=== PATIENT | female | born 1970 | race Caucasian/White ===

== ENCOUNTER 2017-12-01 13:32 | Emergency (ER) | payer OTHER ==
[~2017-12-01] VITALS: Ht 165.1 cm; Wt 65.8 kg
--- NOTE | 2017-12-01 14:18 | RAD ---
Left elbow, 3 views, 12/01/2017: HISTORY: Elbow pain No fracture or dislocation is identified. No significant arthritic change is seen. There is no evidence of a significant elbow joint effusion. IMPRESSION: No significant abnormality is detected. Electronically signed by: Valdez Clark MD (12/01/2017 2:14 PM) [facility]
[2017-12-01] MEDS ORDERED: GABA-585 PO (15:50)
[2017-12-01] MEDS ORDERED: METH4TAB7 PO (15:56)
[2017-12-01] MEDS ORDERED: KETOROLAC 60 MG/2 ML VIAL. IM ONE ×2 (16:00→16:06)
[2017-12-01 16:15] VITALS: BP 110/67
--- NOTE | 2017-12-01 17:24 | PHYS DOC ---
Past History Past Medical History: Anxiety, Arthritis, Fibromyalgia, Other Past Surgical History: Hysterectomy, Other Alcohol Use: None Drug Use: None Social History Narrative: HX OF DAILY USE OF "MEDICAL HALLE" Adult General Chief Complaint Chief Complaint: UPPER EXTREMITY PAIN HPI HPI 47-year-old female presents with left elbow pain. [place] She says that she has had pain for a couple of weeks off and on. The pain is 7 out of 10. He is a burning type of pain that radiates from her elbow or arm sometimes and down her arms other times. She states that it is painful with full flexion, but does not have any limited range of motion. She denies any trauma or overuse injury. She has no other complaints. Review of Systems Review of Systems Constitutional: Denies fever or chills [] Eyes: Denies change in visual acuity, redness, or eye pain [] HENT: Denies nasal congestion or sore throat [] Respiratory: Denies cough or shortness of breath [] Cardiovascular: No additional information not addressed in HPI [] GI: Denies abdominal pain, nausea, vomiting, bloody stools or diarrhea [] : Denies dysuria or hematuria [] Musculoskeletal: Left elbow pain[] Integument: Denies rash or skin lesions [] Neurologic: Denies headache, focal weakness or sensory changes [] Endocrine: Denies polyuria or polydipsia [] All other systems were reviewed and found to be within normal limits, except as documented in this note. Current Medications Current Medications Current Medications Medications (Trade) Dose Ordered Sig/[facility] Start Time Stop Time Status Last Admin Dose Admin Ketorolac Tromethamine (Toradol) 60 mg STK-MED ONCE 12/01/17 16:06 12/01/17 16:35 DC Physical Exam Physical Exam Constitutional: Well developed, well nourished, no acute distress, non-toxic appearance. [] HENT: Normocephalic, atraumatic, bilateral external ears normal, oropharynx moist, no oral exudates, nose normal. [] Eyes: PERRLA, EOMI, conjunctiva normal, no discharge. [] Neck: Normal range of motion, no tenderness, supple, no stridor. [] Cardiovascular:Heart rate regular rhythm, no murmur [] Lungs & Thorax: Bilateral breath sounds clear to auscultation [] Abdomen: Bowel sounds normal, soft, no tenderness, no masses, no pulsatile masses. [] Skin: Warm, dry, no erythema, no rash. [] Back: No tenderness, no CVA tenderness. [] Extremities: Subjective pain with flexion past 110, no cyanosis, no clubbing, ROM intact, no edema. No erythema.[] Neurologic: Alert and oriented X 3, normal motor function, normal sensory function, no focal deficits noted. [] Psychologic: Affect normal, judgement normal, mood normal. [] Current Patient Data Vital Signs Vital Signs Date Time Temp Pulse Resp B/P (MAP) Pulse Ox O2 Delivery O2 Flow Rate FiO2 12/01/17 16:15 83 20 110/67 (81) 100 Room Air 12/01/17 13:35 97.8 EKG EKG [] Radiology/Procedures Radiology/Procedures []Left elbow, 3 views, 12/01/2017: HISTORY: Elbow pain No fracture or dislocation is identified. No significant arthritic change is seen. There is no evidence of a significant elbow joint effusion. IMPRESSION: No significant abnormality is detected. Electronically signed by: Valdez Clark MD (12/01/2017 2:14 PM) [facility] Course & Med Decision Making Course & Med Decision Making Pertinent Labs and Imaging studies reviewed. (See chart for details) Patient's x-ray is unremarkable. The type of pain that she is describing sounds like neuropathic pain. She has had injections in her cervical spine in the past. She has never had a workup for carpal tunnel. She has an odd, flat affect. I don't know if this is due to her prescription medications or something else. She is nontoxic in appearance. I do not believe there is anything seriously wrong with the patient. I offered to try Neurontin, but she says she does not tolerate it well. She asked if we could try methylprednisolone and I agreed a 5 day course of it. Patient was happy with this and stated she was ready to be discharged. [] Dragon Disclaimer Dragon Disclaimer This electronic medical record was generated, in whole or in part, using a voice recognition dictation system. Departure Departure: Impression: Primary Impression: Left elbow pain Disposition: 01 HOME, SELF-CARE Condition: STABLE Scripts Methylprednisolone (METHYLPREDNISOLONE) 4 Mg Tablet 4 MG PO DAILY for 7 Days, #7 TAB Prov: VALENTIN MADSEN DO 12/01/17 VALENTIN MADSEN DO December 01, 2017 17:24
== END 2017-12-01 16:35 | disposition home or self-care (01) ==
LOC: ER 13:32
DX: M25.522 Pain in left elbow (principal); F41.9 Anxiety disorder, unspecified; M79.7 Fibromyalgia; M19.90 Unspecified osteoarthritis, unspecified site
CPT/HCPCS: 73070; 96372; 99284; J1885

== ENCOUNTER 2018-07-11 12:50 | Emergency (ER) | payer OTHER ==
[~2018-07-11] VITALS: Ht 165.1 cm; Wt 73.1 kg
[~2018-07-11 12:50] MED LIST: GABA-585 PO; METH4TAB7 PO
[2018-07-11] MEDS ORDERED: HYDROcodone/APAP 5/325MG 1 TAB TABLET PO ONE (13:15)
[2018-07-11] MEDS ORDERED: KETOROLAC 60 MG/2 ML VIAL. IM ONE (13:15)
[2018-07-11] MEDS ORDERED: CYCLOBENZAPRINE 10 MG TABLET. PO ONE (13:15)
--- NOTE | 2018-07-11 13:17 | PHYS DOC ---
Past History Past Medical History: Anxiety, Arthritis, Fibromyalgia, Other Past Surgical History: Hysterectomy, Other Alcohol Use: None Drug Use: Marijuana Adult General Chief Complaint Chief Complaint: BACK PAIN - NO INJURY HPI HPI Patient is a 48 year old female with history of chronic back pain who presents with complaining of low back pain. Patient stated she tried to prevent of a fight between her service dog and a big bulldog and twisted her back with radiation of pain to posterior left thigh and numbness of her left eye like her previous episodes of sciatica pain. Patient had a ride to the hospital but went to a wrong part of hospital and almost lost her balance and had to sit on the stairs without having to fall. Patient brought in by EMS. Review of Systems Review of Systems Constitutional: Denies fever or chills [] Eyes: Denies change in visual acuity, redness, or eye pain [] HENT: Denies nasal congestion or sore throat [] Respiratory: Denies cough or shortness of breath [] Cardiovascular: No additional information not addressed in HPI [] GI: Denies abdominal pain, nausea, vomiting, bloody stools or diarrhea [] : Denies dysuria or hematuria [] Musculoskeletal: Reports back pain and neck pain Integument: Denies rash or skin lesions [] Neurologic: Denies headache, focal weakness, reports sensory changes [] Endocrine: Denies polyuria or polydipsia [] All other systems were reviewed and found to be within normal limits, except as documented in this note. Current Medications Current Medications Current Medications Medications (Trade) Dose Ordered Sig/[facility] Start Time Stop Time Status Last Admin Dose Admin Acetaminophen/ Hydrocodone Bitart (Lortab 5/325) 1 tab 1X ONCE 07/11/18 13:15 07/11/18 13:16 UNV Cyclobenzaprine HCl (Flexeril) 10 mg 1X ONCE 07/11/18 13:15 07/11/18 13:16 UNV Ketorolac Tromethamine (Toradol Im) 60 mg 1X ONCE 07/11/18 13:15 07/11/18 13:16 UNV Allergies Allergies Allergies Coded Allergies Type Severity Reaction Last Updated Verified Sulfa (Sulfonamide Antibiotics) Allergy Severe 07/11/18 Yes Physical Exam Physical Exam Constitutional: Well developed, well nourished, no acute distress, non-toxic appearance. [] HENT: Normocephalic, atraumatic, bilateral external ears normal, oropharynx moist, no oral exudates, nose normal. [] Eyes: PERRLA, EOMI, conjunctiva normal, no discharge. [] Neck: Normal range of motion, no tenderness, supple, no stridor. [] Cardiovascular:Heart rate regular rhythm, no murmur [] Lungs & Thorax: Bilateral breath sounds clear to auscultation [] Abdomen: Bowel sounds normal, soft, no tenderness, no masses, no pulsatile masses. [] Skin: Warm, dry, no erythema, no rash. [] Back: No midline tenderness, painful range of motion, left paraspinal muscle spasm, no CVA tenderness. [] Extremities: No tenderness, no cyanosis, no clubbing, ROM intact, no edema. [] Neurologic: Alert and oriented X 3, normal motor function, normal sensory function, no focal deficits noted. [] Psychologic: Affect normal, judgement normal, mood normal. [] Current Patient Data Vital Signs Vital Signs Date Time Temp Pulse Resp B/P (MAP) Pulse Ox O2 Delivery O2 Flow Rate FiO2 07/11/18 13:03 98.4 96 18 100 Room Air EKG EKG [] Radiology/Procedures Radiology/Procedures [][place] [address] IMAGING REPORT Signed PATIENT: JESSEE ALONSO ACCOUNT: [id number] : 1970 LOCATION: ER AGE: 48 SEX: F EXAM STATUS: PRE ER ORD. PHYSICIAN: ISAIAS PEARL MD REASON: injury PROCEDURE: HIP LEFT 2V WITH PELVIS LUMBAR SPINE 2-3V, HIP LEFT 2V WITH PELVIS History: lower back pain, fell today. Left hip and pelvic pain. Comparison: None are available AP pelvis with two-view left hip No evidence of an acute fracture. No evidence of bone destruction. Joint spaces intact. Surgical clips are identified in pelvis. Pelvic calcifications are likely due to phleboliths. Several dense nonspecific soft tissue calcification seen on the left. Three-view lumbar spine Degenerative spondylosis with marginal spurring. Vertebral body height is intact. No significant spondylolisthesis. IMPRESSION: Degenerative spondylosis. No evidence of an acute fracture. Electronically signed by: Jaime Gore MD (07/11/2018 1:48 PM) [facility] DICTATED AND SIGNED BY: JAIME GORE MD DATE: 07/11/18 0981 CC: ISAIAS PEARL MD; PCP,NO ~ Course & Med Decision Making Course & Med Decision Making Pertinent Imaging studies reviewed. (See chart for details) discharge: I've spoken with the patient and/or caregivers. I've explained the patient's condition, diagnosis and treatment plan based on information available to me at this time. I've answered the patient's and/or caregivers questions and addressed any concerns. The patient and/or caregivers have a good understanding the patient's diagnosis, condition and treatment plan as can be expected at this point. Vital signs have been stabilized. The patient's condition is stable for discharge from the emergency department. The patient will pursue further outpatient evaluation with her primary care provider or other designated consulting physician as outlined in the discharge instructions. Patient and/or caregivers are agreeable to this plan of care and follow-up instructions have been explained in detail. The patient and/or caregivers have received these instructions in written format and expressed understanding of these discharge instructions. The patient and her caregivers are aware that if any significant change in condition or worsening of symptoms should prompt him to immediately return to this of the closest emergency department. If an emergent department is not readily available I would encourage him to call 911. Venus Disclaimer Dragon Disclaimer This electronic medical record was generated, in whole or in part, using a voice recognition dictation system. Departure Departure: Impression: Primary Impression: Acute lumbosacral myofascial strain Disposition: HOME, SELF-CARE (at 1417) Condition: IMPROVED Referrals: PCP,TARSHA (PCP) Patient Instructions: Lumbosacral Strain Additional Instructions: Drink plenty of liquids Follow-up with your primary care physician in 3-5 days Return to ER if not getting better Apply ice on your back [id number] Tylenol 1000 mg every 6-8 hours as needed for pain Scripts Cyclobenzaprine Hcl (CYCLOBENZAPRINE HCL) 10 Mg Tablet 1 TAB PO TID for pain, #30 TAB Prov: ISAIAS PEARL MD 07/11/18 ISAIAS PEARL MD Jul 11, 2018 13:17
--- NOTE | 2018-07-11 13:52 | RAD ---
LUMBAR SPINE 2-3V, HIP LEFT 2V WITH PELVIS History: lower back pain, fell today. Left hip and pelvic pain. Comparison: None are available AP pelvis with two-view left hip No evidence of an acute fracture. No evidence of bone destruction. Joint spaces intact. Surgical clips are identified in pelvis. Pelvic calcifications are likely due to phleboliths. Several dense nonspecific soft tissue calcification seen on the left. Three-view lumbar spine Degenerative spondylosis with marginal spurring. Vertebral body height is intact. No significant spondylolisthesis. IMPRESSION: Degenerative spondylosis. No evidence of an acute fracture. Electronically signed by: Jaime Gore MD (07/11/2018 1:48 PM) [facility]
--- NOTE | 2018-07-11 13:52 | RAD ---
LUMBAR SPINE 2-3V, HIP LEFT 2V WITH PELVIS History: lower back pain, fell today. Left hip and pelvic pain. Comparison: None are available AP pelvis with two-view left hip No evidence of an acute fracture. No evidence of bone destruction. Joint spaces intact. Surgical clips are identified in pelvis. Pelvic calcifications are likely due to phleboliths. Several dense nonspecific soft tissue calcification seen on the left. Three-view lumbar spine Degenerative spondylosis with marginal spurring. Vertebral body height is intact. No significant spondylolisthesis. IMPRESSION: Degenerative spondylosis. No evidence of an acute fracture. Electronically signed by: Jaime Gore MD (07/11/2018 1:48 PM) [facility]
[2018-07-11] MEDS ORDERED: CYCL-331 PO (14:20)
[2018-07-11 14:26] VITALS: BP 112/56
== END 2018-07-11 14:20 | disposition home or self-care (01) ==
LOC: ER 12:50
DX: S39.012A Strain of muscle, fascia and tendon of lower back, initial encounter (principal); M54.2 Cervicalgia; M25.552 Pain in left hip; R10.2 Pelvic and perineal pain; F41.9 Anxiety disorder, unspecified; M19.90 Unspecified osteoarthritis, unspecified site; M79.7 Fibromyalgia; Z90.710 Acquired absence of both cervix and uterus; Z88.2 Allergy status to sulfonamides; X50.1XXA Overexertion from prolonged static or awkward postures, initial encounter; Y93.89 Activity, other specified; Y92.89 Other specified places as the place of occurrence of the external cause; Y99.8 Other external cause status
CPT/HCPCS: 72100; 73502; 96372; 99283; J1885

== ENCOUNTER 2018-09-26 17:07 | Emergency (ER) | payer OTHER ==
[~2018-09-26] VITALS: Ht 165.1 cm; Wt 73.1 kg
[~2018-09-26 17:07] MED LIST changes: +CYCL-331 PO
[2018-09-26] MEDS ORDERED: IV NORMAL SALINE 1,000ML 1,000 ML IV ONE (17:30)
[2018-09-26] MEDS ORDERED: ONDANSETRON PF 4 MG/2 ML VIAL. IV ONE (17:30)
--- NOTE | 2018-09-26 17:36 | PHYS DOC ---
Past History Past Medical History: Anxiety, Arthritis, Asthma, Fibromyalgia, Other (VALENTIN MADSEN DO) Past Surgical History: Hysterectomy, Other (VALENTIN MADSEN DO) Alcohol Use: None Drug Use: Marijuana (VALENTIN MADSEN DO) Adult General Chief Complaint Chief Complaint: FLU SYMPTOM HPI HPI 48-year-old female presents with cough, fever, and body aches. The patient has had a viral URI or about the last 10 days. She thought she was starting to get better until yesterday when she had increased cough, and started have some body ache. Today she's had a fever of 101 and felt very ill. She has been nauseated. She denies diarrhea. Denies sore throat. She did get her influenza shot this year. (VALENTIN MADSEN DO) Review of Systems Review of Systems Constitutional: Fever, body aches. [] Eyes: Denies change in visual acuity, redness, or eye pain [] HENT: Denies nasal congestion or sore throat [] Respiratory: Cough with shortness of breath [] Cardiovascular: No additional information not addressed in HPI [] GI: Denies abdominal pain, nausea, vomiting, bloody stools or diarrhea [] : Denies dysuria or hematuria [] Musculoskeletal: Denies back pain or joint pain [] Integument: Denies rash or skin lesions [] Neurologic: Denies headache, focal weakness or sensory changes [] Endocrine: Denies polyuria or polydipsia [] All other systems were reviewed and found to be within normal limits, except as documented in this note. (VALENTIN MADSEN DO) Current Medications Current Medications Current Medications Medications (Trade) Dose Ordered Sig/[facility] Start Time Stop Time Status Last Admin Dose Admin Ketorolac Tromethamine (Toradol 30mg Vial) 30 mg 1X ONCE 09/26/18 17:30 09/26/18 17:31 UNV Ondansetron HCl (Zofran) 4 mg 1X ONCE 09/26/18 17:30 09/26/18 17:33 DC Sodium Chloride 1,000 ml @ 1,000 mls/hr 1X ONCE 09/26/18 17:30 09/26/18 18:29 (VALENTIN MADSEN DO) Allergies Allergies Allergies Coded Allergies Type Severity Reaction Last Updated Verified Sulfa (Sulfonamide Antibiotics) Allergy Severe 07/11/18 Yes naproxen Allergy Unknown 09/26/18 Yes promethazine Allergy Unknown 09/26/18 Yes (VALENTIN MADSEN DO) Physical Exam Physical Exam Constitutional: Well developed, well nourished, no acute distress, non-toxic appearance. [] HENT: Normocephalic, atraumatic, bilateral external ears normal, oropharynx moist, no oral exudates, nose normal. [] Eyes: PERRLA, EOMI, conjunctiva normal, no discharge. [] Neck: Normal range of motion, no tenderness, supple, no stridor. [] Cardiovascular:Heart rate 114, regular rhythm, no murmur [] Lungs & Thorax: Bilateral breath sounds clear to auscultation [] Abdomen: Bowel sounds normal, soft, no tenderness, no masses, no pulsatile masses. [] Skin: Warm, dry, no erythema, no rash. [] Back: No tenderness, no CVA tenderness. [] Extremities: No tenderness, no cyanosis, no clubbing, ROM intact, no edema. [] Neurologic: Alert and oriented X 3, normal motor function, normal sensory function, no focal deficits noted. [] Psychologic: Affect normal, judgement normal, mood normal. [] (VALENTIN MADSEN DO) Physical Exam Constitutional: Well developed, well nourished, no acute distress, non-toxic appearance. [] Cardiovascular: Heart rate and rhythm Lungs & Thorax: Bilateral breath sounds clear to auscultation [] Abdomen: Soft, no tenderness, no distention/rebound tenderness/guarding Skin: Warm, dry, no erythema, no rash. [] Extremities: No tenderness, ROM intact, no edema. [] Neurologic: Alert and oriented X 3, no focal deficits noted. [] (HOLLIS ROGERS DO) Current Patient Data Vital Signs Vital Signs Date Time Temp Pulse Resp B/P (MAP) Pulse Ox O2 Delivery O2 Flow Rate FiO2 09/26/18 17:07 99.5 119 28 96 Room Air (VALENTIN MADSEN DO) EKG EKG [] (VALENTIN MADSEN DO) Radiology/Procedures Radiology/Procedures [] (VALENTIN MADSEN DO) Radiology/Procedures PROCEDURE: CHEST PA & LATERAL Chest radiograph 09/26/2018 5:37 PM INDICATION: Cough with fever and shortness of breath COMPARISON: None available TECHNIQUE: Frontal and lateral views of the chest are provided. FINDINGS: The cardiomediastinal silhouette is within normal limits. There are no pleural effusions. There is no pulmonary vascular congestion. There is no pneumothorax. The lungs are clear. No significant osseous abnormality is identified. IMPRESSION: No acute cardiopulmonary process. Electronically signed by: Lucia Gr MD (09/26/2018 6:44 PM) [facility] DICTATED AND SIGNED BY: LUCIA GR MD DATE: 09/26/181843 (HOLLIS ROGERS DO) Course & Med Decision Making Course & Med Decision Making Pertinent Labs and Imaging studies reviewed. (See chart for details) The patient's workup is pending. I am signing the patient out to Dr. Rogers at 1800. [] (VALENTIN MADSEN DO) Course & Med Decision Making Sign out received from Dr. Madsen for patient with flu-like illness with some nausea. Patient pending laboratory and radiologic studies. Patient seen and evaluated by myself. Symptomatic steroid provided. No respiratory distress or significant wheezing noted. Abdomen non-peritoneal. CXR without acute process. Rapid influenza negative. Patient stable for discharge with outpatient follow-up with PCP. Discussed findings and plan with patient, who acknowledges understanding and agreement. (HOLLIS ROGERS DO) Dragon Disclaimer Dragon Disclaimer This electronic medical record was generated, in whole or in part, using a voice recognition dictation system. (VALENTIN MADSEN DO) Departure Departure: Impression: Primary Impression: Bronchitis Additional Impression: Nausea Disposition: 01 HOME, SELF-CARE Condition: STABLE Referrals: PCP,UNKNOWN (PCP) Patient Instructions: Acute Bronchitis, [id number], Nausea and Vomiting, Easy -to-Read Scripts Benzonatate (TESSALON PERLE) 100 Mg Capsule 1 CAP PO TID PRN for COUGH, #21 CAP Prov: HOLLIS ROGERS DO 09/26/18 Albuterol Sulfate (PROAIR HFA INHALER) 8.5 Gm Hfa.aer.ad 1 PUFF INH PRN Q6HRS for Bronchitis, #1 INHALER 0 Refills Prov: HOLLIS ROGERS DO 09/26/18 Ondansetron (ONDANSETRON ODT) 4 Mg Tab.rapdis 1 TAB PO PRN Q6-8HRS for NAUSEA, #16 TAB Prov: HOLLIS ROGERS DO 09/26/18 Problem Qualifiers VALENTIN MADSEN DO Sep 26, 2018 17:36 HOLLIS ROGERS DO Sep 26, 2018 18:34
[2018-09-26 17:50] LABS: BASO % 1 % (0-3); EOS % 0 % (0-3); HEMATOCRIT 39.6 % (36.0-47.0); HEMOGLOBIN 13.4 g/dL (12.0-15.5); LYMPH # 0.6 x10^3/uL (1.0-4.8); LYMPH % 12 % (24-48); MEAN CORPUSCULAR HEMOGLOBIN 29 pg (25-35); MEAN CORPUSCULAR HGB CONC 34 g/dL (31-37); MEAN CORPUSCULAR VOLUME 86 fL (79-100); MONO # 0.6 x10^3/uL (0.0-1.1); MONO % 12 % (0-9); NEUT # 3.8 x10^3uL (1.8-7.7); NEUT % 75 % (31-73); PLATELET COUNT 295 x10^3/uL (140-400); RED BLOOD COUNT 4.63 x10^6/uL (3.50-5.40); RED CELL DISTRIBUTION WIDTH 12.6 % (11.5-14.5)
[2018-09-26 18:00] LABS: ALBUMIN 3.7 g/dL (3.4-5.0); ALBUMIN/GLOBULIN RATIO 1.2 (1.0-1.7); CALCIUM 8.7 mg/dL (8.5-10.1); GFR 58.7; POTASSIUM 3.6 mmol/L (3.5-5.1); TOTAL BILIRUBIN 0.2 mg/dL (0.2-1.0); TOTAL PROTEIN 6.8 g/dL (6.4-8.2)
[2018-09-26] MEDS ORDERED: KETOROLAC 30 MG/ML VIAL. IV ONE (18:00)
[2018-09-26] MEDS ORDERED: BENZONATATE 100 MG CAPSULE. PO ONE (18:00)
[2018-09-26 18:05] LABS: INFLUENZA A PATIENT NEGATIVE (NEGATIVE); INFLUENZA B PATIENT NEGATIVE (NEGATIVE)
[2018-09-26] MEDS ORDERED: ALBU2.5V8 INH (18:34)
[2018-09-26] MEDS ORDERED: ONDA4TAB12 PO (18:34)
[2018-09-26] MEDS ORDERED: BENZ100C PO (18:34)
--- NOTE | 2018-09-26 18:47 | RAD ---
Chest radiograph 09/26/2018 5:37 PM INDICATION: Cough with fever and shortness of breath COMPARISON: None available TECHNIQUE: Frontal and lateral views of the chest are provided. FINDINGS: The cardiomediastinal silhouette is within normal limits. There are no pleural effusions. There is no pulmonary vascular congestion. There is no pneumothorax. The lungs are clear. No significant osseous abnormality is identified. IMPRESSION: No acute cardiopulmonary process. Electronically signed by: Maira Villa MD (09/26/2018 6:44 PM) [facility]
[2018-09-26 18:55] VITALS: BP 113/68
[2018-09-26] MEDS ORDERED: DEXAMETHASONE 4 MG TABLET PO ONE (19:15)
[2018-12-13] MEDS ORDERED: ATEN25TA42 PO (09:40)
[2018-12-13] MEDS ORDERED: DULO60CA6 PO (09:40)
[2018-12-13] MEDS ORDERED: CARI350T PO (09:40)
[2018-12-13] MEDS ORDERED: ESTR0.62 PO (09:40)
[2018-12-13] MEDS ORDERED: METH-37 PO (09:40)
[2018-12-13] MEDS ORDERED: TRAZ-86 PO (09:40)
== END 2018-09-26 18:55 | disposition home or self-care (01) ==
LOC: ER 17:07
DX: J45.909 Unspecified asthma, uncomplicated (principal); F41.9 Anxiety disorder, unspecified; M19.90 Unspecified osteoarthritis, unspecified site; M79.7 Fibromyalgia; Z88.2 Allergy status to sulfonamides; Z88.6 Allergy status to analgesic agent; Z88.8 Allergy status to other drugs, medicaments and biological substances
CPT/HCPCS: 36415; 71046; 80053; 85025; 87040; 87804; 96374; 96375; 99284; J1885; J2405; J8540; J7030

== ENCOUNTER → 2018-12-14 | Day surgery (SDC) | payer OTHER ==
[~2018-12-14] MED LIST changes: +ALBU2.5V8 INH; +ALBUTEROL SULFATE 2.5 MG/3 ML NEBU. NEB PRN; +ATEN25TA42 PO; +ATROPINE 0.5 MG/5 ML DISP.SYRIN. IV PRN; +BENZ100C PO; +CARI350T PO; +DULO60CA6 PO; +ESTR0.62 PO; +IV RINGERS SOLUTION,LACTATED 1,000 ML IV SCH; +LIDOCAINE 2% PF Vial for OR 5 ML VIAL. ONE; +METH-37 PO; +NALOXONE 0.4 MG/ML VIAL. IV PRN; +ONDA4TAB12 PO; +ONDANSETRON PF 4 MG/2 ML VIAL. IV PRN; +PROPOFOL 20 ML IV ONE; +TRAZ-86 PO; +diphenhydrAMINE 50 MG/ML VIAL IV PRN
[2018-12-14 11:20] VITALS: BP 106/63
== END | disposition home or self-care (01) ==
LOC: SURG 09:45
PROVIDERS: ATTEND Internal Medicine Gastroenterology
DX: K31.89 Other diseases of stomach and duodenum (principal); M79.7 Fibromyalgia; M19.90 Unspecified osteoarthritis, unspecified site; Z90.710 Acquired absence of both cervix and uterus; Z88.2 Allergy status to sulfonamides; Z98.890 Other specified postprocedural states; Z79.899 Other long term (current) drug therapy; Z91.040 Latex allergy status; Z88.8 Allergy status to other drugs, medicaments and biological substances; Z88.1 Allergy status to other antibiotic agents
CPT/HCPCS: 43239; J2704; J7120; 45380; J2001

== ENCOUNTER 2019-01-02 08:56 | Emergency (ER) | payer OTHER ==
[~2019-01-02] VITALS: Ht 317.5 cm; Wt 73.1 kg
[~2019-01-02 08:56] MED LIST changes: -ALBUTEROL SULFATE 2.5 MG/3 ML NEBU. NEB PRN; -ATROPINE 0.5 MG/5 ML DISP.SYRIN. IV PRN; -IV RINGERS SOLUTION,LACTATED 1,000 ML IV SCH; -LIDOCAINE 2% PF Vial for OR 5 ML VIAL. ONE; -NALOXONE 0.4 MG/ML VIAL. IV PRN; -ONDANSETRON PF 4 MG/2 ML VIAL. IV PRN; -PROPOFOL 20 ML IV ONE; -diphenhydrAMINE 50 MG/ML VIAL IV PRN
[2019-01-02] MEDS ORDERED: IV NORMAL SALINE 1,000ML 1,000 ML IV ONE (09:15)
[2019-01-02 09:23] LABS: BASO # 0.1 x10^3/uL (0.0-0.2); BASO % 1 % (0-3); EOS % 1 % (0-3); HEMATOCRIT 40.4 % (36.0-47.0); HEMOGLOBIN 13.8 g/dL (12.0-15.5); LYMPH # 2.6 x10^3/uL (1.0-4.8); LYMPH % 37 % (24-48); MEAN CORPUSCULAR HEMOGLOBIN 29 pg (25-35); MEAN CORPUSCULAR HGB CONC 34 g/dL (31-37); MEAN CORPUSCULAR VOLUME 85 fL (79-100); MONO # 0.4 x10^3/uL (0.0-1.1); MONO % 5 % (0-9); NEUT # 3.9 x10^3uL (1.8-7.7); NEUT % 56 % (31-73); PLATELET COUNT 335 x10^3/uL (140-400); RED BLOOD COUNT 4.74 x10^6/uL (3.50-5.40); RED CELL DISTRIBUTION WIDTH 12.5 % (11.5-14.5)
--- NOTE | 2019-01-02 09:41 | PHYS DOC ---
Past History Past Medical History: Anxiety, Arthritis, Asthma, Fibromyalgia, Other Past Surgical History: Hysterectomy, Other Alcohol Use: None Drug Use: Marijuana Adult General Chief Complaint Chief Complaint: DIZZY/LIGHT HEADED HPI HPI 48-year-old female presents with fatigue and shortness of breath. The patient tells me that she has been very active this week wants been very hot outside. She is done several days of outdoor activities. Yesterday she was working outside again and began to feel a bit short of breath and had fatigue. She felt really run down and tired. She did calm back inside to rest. She felt a bit better after that. Today, she took her dog for a walk and agreed out for a while was feeling short of breath again and very fatigued. She came back to her apartment still felt like to was breathing hard and had no energy. On arrival to the ED she feels that she is getting tired and very quickly with little exertion. She denies chest pain or diaphoresis. She does not have a cardiac history. She has had heat exhaustion in the past when she was in another state. She denies fever or chills. Review of Systems Review of Systems Constitutional: Fatigue. Denies fever or chills [] Eyes: Denies change in visual acuity, redness, or eye pain [] HENT: Denies nasal congestion or sore throat [] Respiratory: shortness of breath [] Cardiovascular: No additional information not addressed in HPI [] GI: Denies abdominal pain, nausea, vomiting, bloody stools or diarrhea [] : Denies dysuria or hematuria [] Musculoskeletal: Denies back pain or joint pain [] Integument: Denies rash or skin lesions [] Neurologic: Denies headache, focal weakness or sensory changes [] Endocrine: Denies polyuria or polydipsia [] All other systems were reviewed and found to be within normal limits, except as documented in this note. Current Medications Current Medications Current Medications Medications (Trade) Dose Ordered Sig/Migel Start Time Stop Time Status Last Admin Dose Admin Ondansetron HCl (Zofran) 4 mg 1X ONCE 01/02/19 09:45 01/02/19 09:46 Sodium Chloride 1,000 ml @ 1,000 mls/hr 1X ONCE 01/02/19 09:15 01/02/19 10:14 Allergies Allergies Allergies Coded Allergies Type Severity Reaction Last Updated Verified Sulfa (Sulfonamide Antibiotics) Allergy Severe 07/11/18 Yes doxycycline Allergy Unknown 12/13/18 Yes latex Allergy Unknown 12/14/18 Yes naproxen Allergy Unknown 09/26/18 Yes Physical Exam Physical Exam Constitutional: Well developed, well nourished, no acute distress, non-toxic appearance. [] HENT: Normocephalic, atraumatic, bilateral external ears normal, oropharynx moist, no oral exudates, nose normal. [] Eyes: PERRLA, EOMI, conjunctiva normal, no discharge. [] Neck: Normal range of motion, no tenderness, supple, no stridor. [] Cardiovascular:Heart rate regular rhythm, no murmur [] Lungs & Thorax: Bilateral breath sounds clear to auscultation [] Abdomen: Bowel sounds normal, soft, no tenderness, no masses, no pulsatile masses. [] Skin: Warm, dry, no erythema, no rash. [] Back: No tenderness, no CVA tenderness. [] Extremities: No tenderness, no cyanosis, no clubbing, ROM intact, no edema. [] Neurologic: Alert and oriented X 3, normal motor function, normal sensory function, no focal deficits noted. [] Psychologic: Affect normal, judgement normal, mood talkative. [] Current Patient Data Lab Results Laboratory Tests Test 01/02/19 09:12 White Blood Count 7.0 x10^3/uL (4.0-11.0) Red Blood Count 4.74 x10^6/uL (3.50-5.40) Hemoglobin 13.8 g/dL (12.0-15.5) Hematocrit 40.4 % (36.0-47.0) Mean Corpuscular Volume 85 fL (79-100) Mean Corpuscular Hemoglobin 29 pg (25-35) Mean Corpuscular Hemoglobin Concent 34 g/dL (31-37) Red Cell Distribution Width 12.5 % (11.5-14.5) Platelet Count 335 x10^3/uL (140-400) Neutrophils (%) (Auto) 56 % (31-73) Lymphocytes (%) (Auto) 37 % (24-48) Monocytes (%) (Auto) 5 % (0-9) Eosinophils (%) (Auto) 1 % (0-3) Basophils (%) (Auto) 1 % (0-3) Neutrophils # (Auto) 3.9 x10^3uL (1.8-7.7) Lymphocytes # (Auto) 2.6 x10^3/uL (1.0-4.8) Monocytes # (Auto) 0.4 x10^3/uL (0.0-1.1) Eosinophils # (Auto) 0.0 x10^3/uL (0.0-0.7) Basophils # (Auto) 0.1 x10^3/uL (0.0-0.2) EKG EKG [] Radiology/Procedures Radiology/Procedures [] Course & Med Decision Making Course & Med Decision Making Pertinent Labs and Imaging studies reviewed. (See chart for details) Patient's labs are unremarkable. Her chest x-ray is unremarkable. I'm giving the patient 1 L normal saline. I believe she is just tired from the heat. She's been exerting herself in an adverse environment. I believe she just needs to stay hydrated and get some rest. She is stable for discharge at this time. [] Dragon Disclaimer Dragon Disclaimer This electronic medical record was generated, in whole or in part, using a voice recognition dictation system. Departure Departure: Impression: Primary Impression: Fatigue due to excessive exertion Disposition: 01 HOME, SELF-CARE Condition: STABLE Referrals: ARDEN PERES MD (PCP) Patient Instructions: Fatigue, Heat Illness-SportsMed Problem Qualifiers Primary Impression: Fatigue due to excessive exertion Encounter type: initial encounter Qualified Codes: T73.3XXA - Exhaustion due to excessive exertion, initial encounter VALENTIN MADSEN DO Jan 02, 2019 09:41
[2019-01-02] MEDS ORDERED: ONDANSETRON PF 4 MG/2 ML VIAL. IV ONE (09:45)
--- NOTE | 2019-01-02 09:53 | RAD ---
EXAM: CHEST 2 VIEWS. HISTORY: Dizziness. COMPARISON: 09/26/2018. FINDINGS: Frontal and lateral views of the chest are obtained. There are no confluent infiltrates. There is no pneumothorax or pleural effusion. The heart is not enlarged. Changes of cervical fusion are noted. IMPRESSION: 1. No confluent infiltrates. Electronically signed by: Kari Vuong MD (01/02/2019 9:51 AM) [facility]
[2019-01-02 10:02] LABS: ALBUMIN 3.7 g/dL (3.4-5.0); ALBUMIN/GLOBULIN RATIO 1.2 (1.0-1.7); CALCIUM 8.8 mg/dL (8.5-10.1); CREATININE 0.8 mg/dL (0.6-1.0); GFR 75.9; POTASSIUM 3.4 mmol/L (3.5-5.1); TOTAL BILIRUBIN 0.4 mg/dL (0.2-1.0); TOTAL PROTEIN 6.8 g/dL (6.4-8.2)
[2019-01-02 10:18] LABS: BACTERIA,URINE 0 /HPF (0-FEW); BILIRUBIN,URINE NEG (NEG); CLARITY,URINE CLEAR; COLOR,URINE YELLOW; GLUCOSE,URINE NEG (NEG); NITRITE,URINE NEG (NEG); RBC,URINE RARE /HPF (0-2); SQUAMOUS EPITHELIAL CELL,UR OCC /LPF; UROBILINOGEN,URINE 0.2 mg/dL (0.2 mg/dL); WBC,URINE 0 /HPF (0-4)
[2019-01-02 11:00] VITALS: BP 99/65
== END 2019-01-02 11:00 | disposition home or self-care (01) ==
LOC: ER 08:56
DX: T73.3XXA Exhaustion due to excessive exertion, initial encounter (principal); R42 Dizziness and giddiness; F41.9 Anxiety disorder, unspecified; M19.90 Unspecified osteoarthritis, unspecified site; J45.909 Unspecified asthma, uncomplicated; M79.7 Fibromyalgia; Z88.2 Allergy status to sulfonamides; Z88.1 Allergy status to other antibiotic agents; Z91.040 Latex allergy status; Z88.8 Allergy status to other drugs, medicaments and biological substances; X58.XXXA Exposure to other specified factors, initial encounter
CPT/HCPCS: 36415; 71046; 80053; 81001; 84484; 85025; 96361; 96374; 99285; J2405; J7030

== ENCOUNTER 2019-07-22 17:08 | Emergency (ER) | payer MEDICAID, OTHER ==
[~2019-07-22] VITALS: Ht 165.1 cm; Wt 73.1 kg
[~2019-07-22 17:08] MED LIST changes: +TRAZ-125 PO; -TRAZ-86 PO
[2019-07-22 17:48] VITALS: BP 108/61
[2019-07-22] MEDS ORDERED: BENZ100C PO (18:03)
--- NOTE | 2019-07-22 18:03 | PHYS DOC ---
Past History Past Medical History: Anxiety, Arthritis, Asthma, Fibromyalgia, Other Past Surgical History: Hysterectomy, Other Alcohol Use: None Drug Use: Marijuana Adult General Chief Complaint Chief Complaint: COUGH HPI HPI 49-year-old female presents with 3 day history of cough and night sweats. Her cough is nonproductive, but she feels like there is something in her throat. She denies any chance of foreign body. It just feels swollen. The cough seems to be increasing. She has not had a measured fever but is still worried about pneumonia or influenza. 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 She has been using her albuterol lately. No known sick contacts. She has no other complaints at this time. Review of Systems Review of Systems Constitutional: chills [] Eyes: Denies change in visual acuity, redness, or eye pain [] HENT: Nasal congestion[] Respiratory: Cough without shortness of breath [] Cardiovascular: No additional information not addressed in HPI [] GI: Denies abdominal pain, nausea, vomiting, bloody stools or diarrhea [] : Denies dysuria or hematuria [] Musculoskeletal: Denies back pain or joint pain [] Integument: Denies rash or skin lesions [] Neurologic: Denies headache, focal weakness or sensory changes [] Endocrine: Denies polyuria or polydipsia [] All other systems were reviewed and found to be within normal limits, except as documented in this note. Allergies Allergies Allergies Coded Allergies Type Severity Reaction Last Updated Verified Sulfa (Sulfonamide Antibiotics) Allergy Severe 07/11/18 Yes doxycycline Allergy Unknown 12/13/18 Yes latex Allergy Unknown 12/14/18 Yes naproxen Allergy Unknown 09/26/18 Yes Physical Exam Physical Exam Constitutional: Well developed, well nourished, no acute distress, non-toxic appearance. [] HENT: Normocephalic, atraumatic, bilateral external ears normal, oropharynx mildly erythematous without tonsillar exudates, nose and just. [] Eyes: PERRLA, EOMI, conjunctiva normal, no discharge. [] Neck: Normal range of motion, no tenderness, supple, no stridor. [] Cardiovascular:Heart rate regular rhythm, no murmur [] Lungs & Thorax: Bilateral breath sounds clear to auscultation [] Abdomen: Bowel sounds normal, soft, no tenderness, no masses, no pulsatile masses. [] Skin: Warm, dry, no erythema, no rash. [] Back: No tenderness, no CVA tenderness. [] Extremities: No tenderness, no cyanosis, no clubbing, ROM intact, no edema. [] Neurologic: Alert and oriented X 3, normal motor function, normal sensory function, no focal deficits noted. [] Psychologic: Affect normal, judgement normal, mood normal. [] EKG EKG [] Radiology/Procedures Radiology/Procedures [] Course & Med Decision Making Course & Med Decision Making Pertinent Labs and Imaging studies reviewed. (See chart for details) The patient's influenza negative. Her chest x-rays negative for pneumonia. She does has viral URI with cough. I will discharge her with Tessalon Perles prescription. He also give her 100 emergency room. She is stable for discharge at this time. [] Dragon Disclaimer Dragon Disclaimer This electronic medical record was generated, in whole or in part, using a voice recognition dictation system. Departure Departure: Impression: Primary Impression: Viral URI with cough Disposition: HOME, SELF-CARE Condition: STABLE Referrals: ARDEN PERES MD (PCP) Patient Instructions: Upper Respiratory Infection, Adult, [facility] Scripts Benzonatate (TESSALON PERLE) 100 Mg Capsule 1 CAP PO TID PRN for COUGH, #30 CAP Prov: VALENTIN MADSEN DO 07/22/19 VALENTIN MADSEN DO Jul 22, 2019 18:03
[2019-07-22 18:41] LABS: INFLUENZA A PATIENT NEGATIVE (NEGATIVE); INFLUENZA B PATIENT NEGATIVE (NEGATIVE)
[2019-07-22] MEDS ORDERED: BENZONATATE 100 MG CAPSULE. PO ONE (18:45)
--- NOTE | 2019-07-22 19:13 | RAD ---
INDICATION: Cough and congestion COMPARISON: January 02, 2019 FINDINGS: 2 view of chest obtained. No focal airspace consolidation. Cardiomediastinal contour unremarkable. No acute osseous abnormality. Postoperative changes with posterior fusion changes to the lower cervical region IMPRESSION: * No focal airspace consolidation or edema. Electronically signed by: Rickey Fay MD (07/22/2019 7:10 PM) [facility] [place]
== END 2019-07-22 19:07 | disposition home or self-care (01) ==
LOC: ER 17:08
DX: J06.9 Acute upper respiratory infection, unspecified (principal); B97.89 Other viral agents as the cause of diseases classified elsewhere; M19.90 Unspecified osteoarthritis, unspecified site; J45.909 Unspecified asthma, uncomplicated; M79.7 Fibromyalgia; Z88.2 Allergy status to sulfonamides; Z88.1 Allergy status to other antibiotic agents; Z88.8 Allergy status to other drugs, medicaments and biological substances; Z91.040 Latex allergy status
CPT/HCPCS: 71046; 87804; 99285

== ENCOUNTER 2020-01-12 18:43 | Emergency (ER) | payer MEDICAID ==
[~2020-01-12] VITALS: Ht 167.6 cm; Wt 60.0 kg
[2020-01-12 18:48] VITALS: BP 121/70
[2020-01-12] MEDS ORDERED: ORPHENADRINE CITRATE 60 MG/2 ML VIAL. IM ONE (19:00)
== END 2020-01-12 18:50 | disposition left against medical advice (07) ==
LOC: ER 18:43
DX: M25.551 Pain in right hip (principal); Z53.21 Procedure and treatment not carried out due to patient leaving prior to being seen by health care provider

== ENCOUNTER 2020-04-14 12:00 | Emergency (ER) | payer MEDICAID ==
[~2020-04-14] VITALS: Ht 165.1 cm; Wt 68.0 kg
[2020-04-14 12:15] VITALS: BP 101/68
[2020-04-14] MEDS ORDERED: METH8TAB3 PO (12:43)
--- NOTE | 2020-04-14 12:43 | PHYS DOC ---
Past History Past Medical History: Fibromyalgia, Other Additional Past Medical Histor: MRSA, syncope, back pain Past Surgical History: Hysterectomy, Lumbar Laminectomy, Oophorectomy, Other Additional Past Surgical Histo: Hernia repair, foot surgery, e3ar surgery, breast biopsy Additional Smoking Information: 1/2 pack daily Alcohol Use: Rarely Drug Use: Marijuana General Adult EDM: Chief Complaint: SKIN PROBLEM HPI: HPI: 49-year-old female presents with rash. Patient has had a spreading rash with small red dots that are intensely pruritic on her bilateral lower extremities. It started on the front of her legs but now encompasses her entire leg from her foot all the way up to her thigh. She is also starting to get dots on her forearms and her lower back. She has multiple allergies, but is unsure what is causing this reaction. She cannot think of anything that is been different or new. She denies shortness of breath or oral swelling. She has no other complaints at this time. Review of Systems: Review of Systems: Constitutional: Denies fever or chills Eyes: Denies change in visual acuity HENT: Denies nasal congestion or sore throat Respiratory: Denies cough or shortness of breath Cardiovascular: Denies chest pain or edema GI: Denies abdominal pain, nausea, vomiting, bloody stools or diarrhea : Denies dysuria Musculoskeletal: Denies back pain or joint pain Integument: Rash Neurologic: Denies headache, focal weakness or sensory changes Endocrine: Denies polyuria or polydipsia Lymphatic: Denies swollen glands Psychiatric: Denies depression or anxiety Heart Score: Risk Factors: Risk Factors: DM, Current or recent (<one month) smoker, HTN, HLP, family history of CAD, obesity. Risk Scores: Score 0 - 3: 2.5% MACE over next 6 weeks - Discharge Home Score 4 - 6: 20.3% MACE over next 6 weeks - Admit for Clinical Observation Score 7 - 10: 72.7% MACE over next 6 weeks - Early Invasive Strategies Allergies: Allergies: Allergies Coded Allergies Type Severity Reaction Last Updated Verified Sulfa (Sulfonamide Antibiotics) Allergy Severe 04/14/20 Yes doxycycline Allergy Unknown 04/14/20 Yes ketorolac Allergy Unknown 04/14/20 Yes latex Allergy Unknown 04/14/20 Yes naproxen Allergy Unknown 04/14/20 Yes oxycodone Allergy Unknown 10/10/20 Yes Physical Exam: PE: Constitutional: Well developed, well nourished, no acute distress, non-toxic appearance. [] HENT: Normocephalic, atraumatic, bilateral external ears normal, oropharynx moist, no oral exudates, nose normal. [] Eyes: PERRLA, EOMI, conjunctiva normal, no discharge. [] Neck: Normal range of motion, no tenderness, supple, no stridor. [] Cardiovascular:Heart rate regular rhythm, no murmur [] Lungs & Thorax: Bilateral breath sounds clear to auscultation [] Abdomen: Bowel sounds normal, soft, no tenderness, no masses, no pulsatile masses. [] Skin: Many scattered, erythematous papules on the bilateral lower extremities with fewer on the forearms. [] Back: No tenderness, no CVA tenderness. [] Extremities: No tenderness, no cyanosis, no clubbing, ROM intact, no edema. [] Neurologic: Alert and oriented X 3, normal motor function, normal sensory function, no focal deficits noted. [] Psychologic: Affect normal, judgement normal, mood normal. [] Current Patient Data: Vital Signs: Vital Signs Date Time Temp Pulse Resp B/P (MAP) Pulse Ox O2 Delivery O2 Flow Rate FiO2 04/14/20 12:15 98.8 88 16 101/68 (79) 97 Room Air EKG: EKG: [] Radiology/Procedures: Radiology/Procedures: [] Course & Med Decision Making: Course & Med Decision Making Pertinent Labs and Imaging studies reviewed. (See chart for details) The patient appears to be having an allergic reaction to something. Not sure what it is. I will treat her with steroids. She has requested methylprednisolone instead of prednisone. She is stable for discharge at this time. [] Dragon Disclaimer: Dragon Disclaimer: This electronic medical record was generated, in whole or in part, using a voice recognition dictation system. Departure Departure: Impression: Primary Impression: Allergic reaction Qualified Codes: T78.40XA - Allergy, unspecified, initial encounter Disposition: 01 DC HOME SELF CARE/HOMELESS Condition: STABLE Referrals: ARDEN PERES MD (PCP) Patient Instructions: Drug Allergy, [id number] Scripts Methylprednisolone (METHYLPREDNISOLONE) 8 Mg Tablet 1 TAB PO DAILY for taper for 8 Days, #20 TAB 0 Refills Take 4 tabs daily for 2 days, then 3 tabs daily for 2 days, then 2 tabs daily for 2 days, then 1 tab daily for 2 days, then stop Prov: VALENTIN MADSEN DO 04/14/20 VALENTIN MADSEN DO Apr 14, 2020 12:43
== END 2020-04-14 12:50 | disposition home or self-care (01) ==
LOC: ER 12:00
DX: T78.40XA Allergy, unspecified, initial encounter (principal); M79.7 Fibromyalgia; Z86.14 Personal history of Methicillin resistant Staphylococcus aureus infection; F17.200 Nicotine dependence, unspecified, uncomplicated; Z88.2 Allergy status to sulfonamides; Z88.1 Allergy status to other antibiotic agents; Z88.5 Allergy status to narcotic agent; Z91.040 Latex allergy status; Z88.8 Allergy status to other drugs, medicaments and biological substances; X58.XXXA Exposure to other specified factors, initial encounter
CPT/HCPCS: 99283

== ENCOUNTER 2021-03-12 08:41 | Emergency (ER) | payer MEDICAID ==
[~2021-03-12] VITALS: Ht 165.1 cm; Wt 67.2 kg
[~2021-03-12 08:41] MED LIST changes: +METH8TAB3 PO
[2021-03-12 09:37] LABS: BASO # 0.1 x10^3/uL (0.0-0.2); BASO % 1 % (0-3); EOS # 0.1 x10^3/uL (0.0-0.7); EOS % 1 % (0-3); HEMATOCRIT 41.7 % (36.0-47.0); LYMPH # 2.2 x10^3/uL (1.0-4.8); LYMPH % 31 % (24-48); MEAN CORPUSCULAR HEMOGLOBIN 29 pg (25-35); MEAN CORPUSCULAR HGB CONC 34 g/dL (31-37); MEAN CORPUSCULAR VOLUME 85 fL (79-100); MONO # 0.5 x10^3/uL (0.0-1.1); MONO % 8 % (0-9); NEUT # 4.2 x10^3uL (1.8-7.7); NEUT % 60 % (31-73); PLATELET COUNT 341 x10^3/uL (140-400); RED BLOOD COUNT 4.89 x10^6/uL (3.50-5.40); RED CELL DISTRIBUTION WIDTH 12.9 % (11.5-14.5)
[2021-03-12 09:41] LABS: CALCIUM 8.6 mg/dL (8.5-10.1); CREATININE 0.8 mg/dL (0.6-1.0); GFR 75.3
[2021-03-12 09:48] LABS: ALBUMIN 3.7 g/dL (3.4-5.0); ALBUMIN/GLOBULIN RATIO 1.3 (1.0-1.7); TOTAL BILIRUBIN 0.3 mg/dL (0.2-1.0); TOTAL PROTEIN 6.5 g/dL (6.4-8.2)
[2021-03-12] MEDS: MORPHINE SULFATE 4 MG/ML DISP.SYRIN. IV ONE ×2 (09:51→11:32)
[2021-03-12] MEDS: ONDANSETRON PF 4 MG/2 ML VIAL. IVP ONE ×2 (09:51→11:32)
--- NOTE | 2021-03-12 10:02 | PHYS DOC ---
Past History Past Medical History: Fibromyalgia, Other Additional Past Medical Histor: MRSA, syncope, back pain, Fibromyalgia (MARGRET GOLD APRN) Past Surgical History: Hysterectomy, Lumbar Laminectomy, Oophorectomy, Other Additional Past Surgical Histo: Hernia repair, foot surgery, e3ar surgery, breast biopsy (MARGRET GOLD APRN) Alcohol Use: None Drug Use: Marijuana (MARGRET GOLD APRN) General Adult EDM: Chief Complaint: ABDOMINAL PAIN HPI: HPI: Patient is a 50-year-old female presents with lower abdominal pain since 2099. Patient states she woke up having abdominal cramping and nausea. Patient is also reporting 3 episodes of bloody stools. Patient states "I have been diagnosed with IBS but never had bloody stools before". "I started taking some medicine last night to help with diarrhea but it is just continued". Patient reports pain is a constant, cramping. Denies taking anything for pain. History of IBS, fibromyalgia, chronic back pain. (MARGRET GOLD APRN) Review of Systems: Review of Systems: Constitutional: Denies fever or chills Eyes: Denies change in visual acuity HENT: Denies nasal congestion or sore throat Respiratory: Denies cough or shortness of breath Cardiovascular: Denies chest pain or edema GI: Reports lower abdominal pain, nausea. Denies vomiting, bloody stools or diarrhea : Denies dysuria Musculoskeletal: Denies back pain or joint pain Integument: Denies rash Neurologic: Denies headache, focal weakness or sensory changes Endocrine: Denies polyuria or polydipsia Lymphatic: Denies swollen glands Psychiatric: Denies depression or anxiety (MARGRET GOLD APRN) Current Medications: Current Meds: Current Medications Medications (Trade) Dose Ordered Sig/Migel Start Time Stop Time Status Last Admin Dose Admin Morphine Sulfate (Morphine 4mg Syringe) 4 mg 1X ONCE 03/12/21 09:30 03/12/21 09:34 DC 03/12/21 09:51 4 MG Ondansetron HCl (Zofran) 4 mg 1X ONCE 03/12/21 09:30 03/12/21 09:34 DC 03/12/21 09:51 4 MG (MARGRET GOLD APRN) Allergies: Allergies: Allergies Coded Allergies Type Severity Reaction Last Updated Verified Sulfa (Sulfonamide Antibiotics) Allergy Severe 04/14/20 Yes doxycycline Allergy Unknown 04/14/20 Yes ketorolac Allergy Unknown 04/14/20 Yes latex Allergy Unknown 04/14/20 Yes naproxen Allergy Unknown 04/14/20 Yes oxycodone Allergy Unknown 04/14/20 Yes (MARGRET GOLD BROACH TROUBLE SHO[employer]ER) Physical Exam: PE: Constitutional: Well developed, well nourished, no acute distress, non-toxic appearance. [] HENT: Normocephalic, atraumatic, bilateral external ears normal, oropharynx moist, no oral exudates, nose normal. [] Eyes: PERRLA, EOMI, conjunctiva normal, no discharge. [] Neck: Normal range of motion, no tenderness, supple, no stridor. [] Cardiovascular:Heart rate regular rhythm, no murmur [] Lungs & Thorax: Bilateral breath sounds clear to auscultation [] Abdomen: Bowel sounds normal, soft, lower abdominal tenderness. Skin: Warm, dry, no erythema, no rash. [] Back: No tenderness, no CVA tenderness. [] Extremities: No tenderness, no cyanosis, no clubbing, ROM intact, no edema. [] Neurologic: Alert and oriented X 3, normal motor function, normal sensory function, no focal deficits noted. [] Psychologic: Affect normal, judgement normal, mood normal. [] (MARGRET GOLD BROACH TROUBLE SHOOTER) Current Patient Data: Labs: Laboratory Tests Test 03/12/21 08:49 White Blood Count 7.0 x10^3/uL (4.0-11.0) Red Blood Count 4.89 x10^6/uL (3.50-5.40) Hemoglobin 14.0 g/dL (12.0-15.5) Hematocrit 41.7 % (36.0-47.0) Mean Corpuscular Volume 85 fL (79-100) Mean Corpuscular Hemoglobin 29 pg (25-35) Mean Corpuscular Hemoglobin Concent 34 g/dL (31-37) Red Cell Distribution Width 12.9 % (11.5-14.5) Platelet Count 341 x10^3/uL (140-400) Neutrophils (%) (Auto) 60 % (31-73) Lymphocytes (%) (Auto) 31 % (24-48) Monocytes (%) (Auto) 8 % (0-9) Eosinophils (%) (Auto) 1 % (0-3) Basophils (%) (Auto) 1 % (0-3) Neutrophils # (Auto) 4.2 x10^3uL (1.8-7.7) Lymphocytes # (Auto) 2.2 x10^3/uL (1.0-4.8) Monocytes # (Auto) 0.5 x10^3/uL (0.0-1.1) Eosinophils # (Auto) 0.1 x10^3/uL (0.0-0.7) Basophils # (Auto) 0.1 x10^3/uL (0.0-0.2) Sodium Level 139 mmol/L (136-145) Potassium Level 4.0 mmol/L (3.5-5.1) Chloride Level 104 mmol/L (98-107) Carbon Dioxide Level 25 mmol/L (21-32) Anion Gap 10 (6-14) Blood Urea Nitrogen 14 mg/dL (7-20) Creatinine 0.8 mg/dL (0.6-1.0) Estimated GFR (Cockcroft-Gault) 75.3 BUN/Creatinine Ratio 18 (6-20) Glucose Level 101 mg/dL (70-99) H Calcium Level 8.6 mg/dL (8.5-10.1) Total Bilirubin 0.3 mg/dL (0.2-1.0) Aspartate Amino Transferase (AST) 17 U/L (15-37) Alanine Aminotransferase (ALT) 24 U/L (14-59) Alkaline Phosphatase 80 U/L (46-116) Total Protein 6.5 g/dL (6.4-8.2) Albumin 3.7 g/dL (3.4-5.0) Albumin/Globulin Ratio 1.3 (1.0-1.7) Lipase 171 U/L (73-393) Vital Signs: Vital Signs Date Time Temp Pulse Resp B/P (MAP) Pulse Ox O2 Delivery O2 Flow Rate FiO2 03/12/21 09:51 16 98 03/12/21 08:45 97.9 80 95/57 Room Air (MARGRET GOLD APRN) EKG: EKG: [] (MARGRET GOLD APRN) Radiology/Procedures: Radiology/Procedures: []INDICATION: Reason: ABD PAIN / Spl. Instructions: / History: COMPARISON: None. TECHNIQUE: Axial CT images were obtained through the abdomen and pelvis without intravenous contrast. One or more of the following individualized dose reduction techniques were utilized for this examination: 1. Automated exposure control; 2. Adjustment of the mA and/or kV according to patient size; 3. Use of iterative reconstruction technique. FINDINGS: No abdominal aortic aneurysm. No intrahepatic biliary duct dilation. No peripancreatic edema. Spleen unremarkable. No hydronephrosis. No definite inflammatory changes to the bladder. Prominence of the wall the left side of the colon which is not very distended. Small fat-containing umbilical hernia. Appendix is not well seen. No dilated loops of bowel to suggest obstruction. Degenerative changes the spine with osteophyte formation. Surgical clips at the anterior abdominal wall on the left. IMPRESSION: * Mild prominence of the wall of the left side of the colon. Would correlate with symptoms to ensure that this is not secondary to mild colitis. Electronically signed by: Rickey Fay MD (03/12/2021 10:48 AM) [id number] (MARGRET GOLD APRN) Heart Score: C/O Chest Pain: No Risk Factors: Risk Factors: DM, Current or recent (<one month) smoker, HTN, HLP, family history of CAD, obesity. Risk Scores: Score 0 - 3: 2.5% MACE over next 6 weeks - Discharge Home Score 4 - 6: 20.3% MACE over next 6 weeks - Admit for Clinical Observation Score 7 - 10: 72.7% MACE over next 6 weeks - Early Invasive Strategies (MARGRET GOLD APRN) Course & Med Decision Making: Course & Med Decision Making Pertinent Labs and Imaging studies reviewed. (See chart for details) [] 50-year-old female presents with lower abdominal pain that started last night. Patient is reporting abdominal cramping and nausea. Denies hemorrhoids. Patient's had 3 episodes of bloody stools. 4 mg morphine given for pain. 4 mg Zofran for nausea. Patient still reporting pain. 4mg morphine, 4 mg Zofran given. All labs unremarkable. UA negative for infection. CT abdomen pelvis is negative for acute abnormality. Patient given 10 mg p.o. Bentyl. Discussed results with patient. Explained to patient she would need to follow- up with her PCP for possible further testing or referral for GI. Patient states that she understands. Patient sent home with prescription for Zofran and Bentyl. Strict return precautions given. (MARGRET GOLD BROACH TROUBLE SHO[employer]ER) Course & Med Decision Making I was the Attending physician on the above date of service of this patient. This patient was evaluated, examined, treated, and dispositioned from the emergency department by the mid-level practitioner. Although I was working at the time , no assistance was requested. Electronically signed, Pam Handley DO (PAM HANDLEY DO) Venus Disclaimer: Venus Disclaimer: This electronic medical record was generated, in whole or in part, using a voice recognition dictation system. (MARGRET GOLD APRN) Departure Departure: Impression: Primary Impression: Gastroenteritis Disposition: HOME / SELF CARE / HOMELESS Condition: STABLE Referrals: ARDEN PERES MD (PCP) Patient Instructions: Viral Gastroenteritis, [id number] Additional Instructions: You were seen in the emergency room for abdominal cramping, rectal bleeding with diarrhea. All of your labs were unremarkable. CT of abdomen and pelvis was negative for any acute abnormalities. Please call GI to make an appointment for further management. I am sending you home prescription for Zofran and also Bentyl. Please return the emergency room if you have worsening symptoms or concerns. Dr. Christensen [address] , [place] [address] EMERGENCY DEPARTMENT GENERAL DISCHARGE INSTRUCTIONS Thank you for coming to [facility] (ED) today and trusting us with you care. We trust that you had a positivie experience in our Emergency Department. If you wish to speak to the department management, you may call the director at [phone]. YOUR FOLLOW UP INSTRUCTIONS ARE FOLLOWS: 1. Do you have a private Doctor? If you do not have a private doctor, please ask for a resource list of physicians or clinics that may be able to assist you with follow up care. 2. The Emergency Physician has interpreted your x-rays. The X-Ray specialist will also review them. If there is a change in the findings, you will be notified in 48 hours when at all possible. 3. A lab test or culture has been done, your results will be reviewed and you will be notified if you need a change in treatment. ADDITIONAL INSTRUCTIONS AND INFORMATION: 1. Your care today has been supervised by a physician who is specially trained in emergency care. Many problems require more than one evaluation for a complete diagnosis and treatment. We recommend that you schedule your follow up appointment as beth mmended to ensure complete treatment of you illness or injury. If you are unable to obtain follow up care and continue to have a problem, or if your condition worsens, we recommend that you return to the ED. 2. We are not able to safely determine your condition over the phone nor are we able to give sound medical advice over the phone. For these safety reasons, if you call for medical advice we will ask you to come to the ED for further evaluation. 3. If you have any questions regarding these discharge instructions please call the ED at [phone]. SAFETY INFORMATION: In the interest of safety, wellness, and injury prevention; we encourage you to wear your sealbelt, if you smoke; quite smoking, and we encourage family to use a protective helmet for bicycling and other sporting events that present an increased risk for head injury. IF YOUR SYMPTOMS WORSEN OR NEW SYMPTOMS DEVELOP, OR YOU HAVE CONCERNS ABOUT YOUR CONDITION; OR IF YOUR CONDITION WORSENS WHILE YOU ARE WAITING FOR YOUR FOLLOW UP APPOINTMENT; EITHER CONTACT YOUR PRIMARY CARE DOCTOR, THE PHYSICIAN WHOSE NAME AND NUMBER YOU WERE GIVEN, OR RETURN TO THE ED IMMEDIATELY. Scripts Ondansetron Hcl (ZOFRAN) 4 Mg Tablet 4 MG PO TID PRN PRN for NAUSEA, #9 TAB Prov: MARGRET GOLD APRN 03/12/21 Dicyclomine Hcl (DICYCLOMINE HCL) 10 Mg Capsule 1 CAP PO PRN Q6HRS for cramping for 7 Days, #28 CAP 3 Refills Prov: MARGRET GOLD APRN 03/12/21 MARGRET GOLD APRN Mar 12, 2021 10:02 PAM HANDLEY DO Mar 13, 2021 05:59
--- NOTE | 2021-03-12 10:50 | RAD ---
INDICATION: Reason: ABD PAIN / Spl. Instructions: / History: COMPARISON: None. TECHNIQUE: Axial CT images were obtained through the abdomen and pelvis without intravenous contrast. One or more of the following individualized dose reduction techniques were utilized for this examinat ion: 1. Automated exposure control; 2. Adjustment of the mA and/or kV according to patient size; 3 . Use of iterative reconstruction technique. FINDINGS: No abdominal aortic aneurysm. No intrahepatic biliary duct dilation. No peripancreatic edema. Spleen unremarkable. No hydronephrosis. No definite inflammatory changes to the bladder. Prominence of the wall the left side of the colon which is not very distended. Small fat-containing u mbilical hernia. Appendix is not well seen. No dilated loops of bowel to suggest obstruction. Degenerative changes the spine with osteophyte formation. Surgical clips at the anterior abdominal wa ll on the left. IMPRESSION: * Mild prominence of the wall of the left side of the colon. Would correlate with symptoms to ensur e that this is not secondary to mild colitis. Electronically signed by: Rickey Fay MD (03/12/2021 10:48 AM) [id number]
[2021-03-12 11:12] LABS: CLARITY,URINE CLEAR; COLOR,URINE STRAW
[2021-03-12 11:13] LABS: BACTERIA,URINE 0 /HPF (0-FEW); BILIRUBIN,URINE NEG (NEG); GLUCOSE,URINE NEG (NEG); NITRITE,URINE NEG (NEG); RBC,URINE OCC /HPF (0-2); SQUAMOUS EPITHELIAL CELL,UR FEW /LPF; UROBILINOGEN,URINE 0.2 mg/dL (0.2 mg/dL); WBC,URINE RARE /HPF (0-4)
[2021-03-12 12:00] VITALS: BP 105/60
[2021-03-12] MEDS ORDERED: ONDA4TAB7 PO (12:20)
[2021-03-12] MEDS ORDERED: DICY10CA3 PO (12:20)
[2021-03-12] MEDS: DICYCLOMINE HCL 10 MG CAPSULE PO ONE (12:34)
== END 2021-03-12 12:38 | disposition home or self-care (01) ==
LOC: ER 08:41
DX: K52.9 Noninfective gastroenteritis and colitis, unspecified (principal); M79.7 Fibromyalgia; Z90.710 Acquired absence of both cervix and uterus; Z90.722 Acquired absence of ovaries, bilateral; Z88.2 Allergy status to sulfonamides; Z88.1 Allergy status to other antibiotic agents; Z91.040 Latex allergy status; Z88.5 Allergy status to narcotic agent
CPT/HCPCS: 36415; 74176; 80053; 81001; 83690; 85025; 96374; 96375; 96376; 99285; J2270; J2405; 99284-25

== ENCOUNTER → 2021-03-14 | Outpatient (CLI) | payer MEDICAID ==
[2021-03-12 12:00] VITALS: BP 105/60
[~2021-03-14] MED LIST changes: +DICY10CA3 PO; -DULO60CA6 PO; +DULO60CA7 PO; +ONDA4TAB7 PO
--- NOTE | 2021-03-14 17:29 | RAD ---
DATE: 03/14/2021 EXAM: US BREAST LEFT LTD, DIGITAL DIAGNOSTIC LT HISTORY: Recall from screening mammogram for asymmetry in the left breast. COMPARISON: Screening mammogram 02/21/2021 This study was interpreted with the benefit of Computerized Aided Detection (CAD). Breast Density: SCATTERED The breast parenchyma shows scattered fibroglandular densities. Breast parenchyma level B. FINDINGS: Mammogram: The nodular asymmetry in the medial left breast becomes less conspicuous on spot compression, likely reflecting asymmetric fibroglandular tissue. This appears to localize to the upper inner left breast on tomosynthesis. Ultrasound: Ultrasound of the left breast demonstrates an island of dense tissue at 11:00, 6 cm from the nipple, likely corresponding with the mammographic abnormality. At 11:00, 6 cm from the nipple, there is also a 4 x 3 mm ovoid, circumscribed hypoechoic mass with no vascularity, parallel in orientation. This may be a fibroadenoma or complicated cyst. There is a similar-appearing mass at 3:00 4 cm from the nipple measuring 5 x 2 mm. There is a normal-appearing lymph node at 12:00 2 cm the nipple measuring 5 x 3 mm. IMPRESSION: There are 2 probably benign circumscribed masses in the left breast, likely fibroadenomas or complicated cyst. Recommend 6 month follow-up ultrasound to ensure stability. BI-RADS CATEGORY: 3 PROBABLY BENIGN FINDING(S)-SHORT INTERVAL FOLLOW-UP SUGGESTED RECOMMENDED FOLLOW-UP: 6M 6 MONTH FOLLOW-UP PQRS compliance statement: Patient information was entered into a reminder system with a target due date for the next mammogram. Mammography is a sensitive method for finding small breast cancers, but it does not detect them all and is not a substitute for careful clinical examination. A negative mammogram does not negate a clinically suspicious finding and should not result in delay in biopsying a clinically suspicious abnormality. "Our facility is accredited by the [employer] Mammography Program."
== END ==
LOC: MAMMO 13:10
PROVIDERS: ATTEND Family Medicine
DX: R92.2 Inconclusive mammogram (principal)
CPT/HCPCS: 76642; 77065

== ENCOUNTER → 2021-09-16 | Outpatient (CLI) | payer MEDICAID ==
[~2021-09-16] MED LIST changes: -CYCL-331 PO; +CYCL10TA19 PO
--- NOTE | 2021-09-16 11:49 | RAD ---
EXAM: Left breast sonogram. HISTORY: 51-year-old female presents for follow-up evaluation of findings within the left breast demo nstrate on a sonogram performed 03/14/2021. TECHNIQUE: Sonographic imaging of the left breast targeted to sites of prior findings was performed. COMPARISON: 03/14/2021. FINDINGS: There has been interval increase in a circumscribed solid appearing hypoechoic lesion at th e 3:00 position 4 cm from the nipple measuring 9 x 5 x 3 mm, previously measuring 5 x 4 x 2 mm. This demonstrates no internal blood flow and is not associated with posterior shadowing. The morphology fa vors a benign etiology such as a fibroadenoma. The interval change may be due to a component of diffe rences in imaging technique. There is a stable 5 mm suspected lymph node at the 12:00 position 2 cm from the nipple. There is a 5 mm cyst at the 11:00 6 cm from the nipple which is not demonstrated on the prior exam. There are stab le dilated ducts within the subareolar aspect of the left breast. No intraductal lesion is seen. Ther e is no suspicious axillary lymph node. IMPRESSION: 1. 9 mm solid-appearing nodule at the 3:00 position 4 cm from the nipple, increased compared to the p rior study. Despite the interval change, the sonographic appearance favors a benign fibroadenomatoid etiology. Continued short-term follow-up with a left breast sonogram is recommended. If the lesion co ntinues to increase, sonographic guided tissue sampling can be performed for definitive diagnosis. 2. Tiny benign intramammary lymph node at the 3:00 position and tiny benign cysts at the 11:00 positi on. 3. BI-RADS Category 3: Probably benign finding(s). Short term follow up with a right breast sonogram in 5 months is recommended. This follow up interval corresponds with a previously established bilater pr mammography screening interval. Electronically signed by: Bharti Sparks MD (09/16/2021 11:47 AM) [id number]
== END ==
LOC: US 10:54
PROVIDERS: ATTEND Family Medicine
DX: N60.02 Solitary cyst of left breast (principal); N63.42 Unspecified lump in left breast, subareolar
CPT/HCPCS: 76642